=== PATIENT | male | born 1985 | race Caucasian/White ===

== ENCOUNTER 2018-10-23 13:52 | Emergency (ER) | payer SELFPAY ==
[2018-10-23 14:07] VITALS: BP 104/69
--- NOTE | 2018-10-23 14:13 | ED Physician Documentation ---
General Adult - HISTORIAN Historian: patient (left upper leg laceration via chainsaw ) - HPI Stated Complaint: chainsaw to left leg Chief Complaint: Laceration/Recheck/Suture Onset: hours (1) Timing: still present Severity: mild Further Comments: yes (He states he was using the chainsaw and cut his leg. He denies any loss of feeling. He has no other injury) - ROS CONST: no problems - PAST HX Past History: none Surgeries/Procedures: other (knee surgery ) Allergies/Adverse Reactions: Allergies Allergy/AdvReac Type Severity Reaction Status Date / Time No Known Allergies Allergy Verified 10/23/18 14:07 Home Medications: Ambulatory Orders Medication Instructions Recorded NK 02/19/13 - SOCIAL HX Smoking History: non-smoker Alcohol Use: none Drug Use: none - FAMILY HX Family History: No - VITAL SIGNS Vital Signs: Vital Signs Temp Pulse Resp BP Pulse Ox 97.6 F 75 21 104/69 97 10/23/18 14:04 10/23/18 14:04 10/23/18 14:04 10/23/18 14:04 10/23/18 14:04 - REVIEWED ASSESSMENTS Nursing Assessment Reviewed: Yes Vitals Reviewed: Yes Procedures Wound Location: lower extremity Wound's Depth, Shape: superficial Wound Explored: foreign body removed (part of luis f/pant materail) Anesthesia: 1% Lidocaine Wound Debrided: moderate Wound Repaired With: sutures Suture Size/Type: 4:0 Number of Sutures: 29 Layer Closure?: No ED Results Lab/Radiology - Radiology Radiology Impressions: Left femur Clinical history, Technique AP and lateral Findings: There is no fracture or lytic change involving the left femur. The lateral soft tissue laceration is present. Electronically signed on October 23, 2018 2:33:45 PM CDT by: Mahendra Blankenship - Orders Orders: ED Orders Category Date Time Status Cleanse with NS and Chlorhexid 1T Care 10/23/18 14:13 Active LT FEMUR 2VIEWS [RAD] Stat Exams 10/23/18 Completed Lidocaine 1% 5ml [Xylocaine] Med 10/23/18 15:32 Discontinued 50 mg IJ NOW ONE Lidocaine 1% PF 30ml [Xylocaine 1% 30Ml Vial] Med 10/23/18 15:32 Discontinued 300 mg .ROUTE .STK-MED ONE fentaNYL CITRATE/PF [Sublimaze] Med 10/23/18 14:14 Discontinued 50 mcg IM NOW ONE General Adult Physical Exam - PHYSICAL EXAM GENERAL APPEARANCE: no distress EENT: eye inspection normal, no signs of dehydration NECK: normal inspection RESPIRATORY: no resp distress, chest non-tender, breath sounds normal CVS: reg rate & rhythm, heart sounds normal, equal pulses, no murmur ABDOMEN: soft, normal bowel sounds, no distension, non-tender BACK: normal inspection, no CVA tenderness SKIN: warm/dry, other (10 cm laceration on left upper leg - no current bleeding ) EXTREMITIES: non-tender, normal range of motion NEURO: oriented X3 Discharge Clincal Impression: Laceration of left leg Qualifiers: Encounter type: initial encounter Qualified Code(s): S81.812A - Laceration without foreign body, left lower leg, initial encounter Referrals: Primary Doctor,No [Primary Care Provider] - 2 Days Comments: 1. Keep area clean and dry - dressing for 24 hours 2. Monitor for s/sx of infection - redness, drainage, swelling or increased pain 3. Remove sutures -29- in 7-10 days at PCP 4. Return to ER for any increasing concerns Condition: Stable Disposition: 01 HOME, SELF-CARE Decision to Admit: NO Date of Decison to Admit: 10/23/18 Decision Time: 16:47
[2018-10-23] MEDS ORDERED: fentaNYL CITRATE/PF 100 MCG/2 ML INJ. IM ONE (14:14)
--- NOTE | 2018-10-23 15:30 | Diagnostic Imaging Report ---
JENSEN CHANDLER [facility] [address] [facility] [address] [place], [place]. [address] Report Submission Date: October 23, 2018 2:33:45 PM CDT Patient Study Name: LEONCIO LOGAN Date: October 23, 2018 2:15:30 PM CDT Modality Type: DX Gender: M Description: LT FEMUR 2VIEWS : 81 Institution: [facility] Physician: JENSEN CHANDLER Left femur Clinical history, Technique AP and lateral Findings: There is no fracture or lytic change involving the left femur. The lateral soft tissue laceration is present. Electronically signed on October 23, 2018 2:33:45 PM CDT by: Mahendra WARREN
[2018-10-23] MEDS ORDERED: Lidocaine 1% 5ml 10 MG/ML VIAL IJ ONE (15:32)
[2018-10-23] MEDS ORDERED: LIDOCAINE HCL 1% PF 300MG/30ML VIAL ONE (15:32)
== END 2018-10-23 16:50 | disposition home or self-care (01) ==
LOC: ED 13:52
DX: S71.122A Laceration with foreign body, left thigh, initial encounter (principal); W29.3XXA Contact with powered garden and outdoor hand tools and machinery, initial encounter; Y93.89 Activity, other specified; Y92.9 Unspecified place or not applicable
CPT/HCPCS: 12034; 73552; 96372; 99283; 99284; J3010